=== PATIENT | female | born 2000 | race African-American/Black ===

== ENCOUNTER → 2024-06-28 | Outpatient (REF) | payer OTHER | LOC: M WUC 19:41 | PROVIDERS: ATTEND Registered Nurse | DX: N76.6 Ulceration of vulva (principal) ==

== ENCOUNTER 2024-09-07 19:16 | Emergency (ER) | payer OTHER ==
[~2024-09-07] VITALS: Ht 162.6 cm; Wt 82.5 kg
[2024-09-07 19:22] VITALS: BP 132/65; TEMP 97.6; O2SAT 100
[2024-09-07] MEDS ORDERED: MUCI120T PO (19:45)
== END 2024-09-07 21:01 | disposition left against medical advice (07) ==
LOC: M ED 19:16
DX: Z53.21 Procedure and treatment not carried out due to patient leaving prior to being seen by health care provider (principal)

== ENCOUNTER 2024-11-08 10:44 | Emergency (ER) | payer OTHER ==
[~2024-11-08] VITALS: Ht 162.6 cm; Wt 83.6 kg
[~2024-11-08 10:44] MED LIST: MUCI120T PO
[2024-11-08] MEDS: ACETAMINOPHEN 500 MG TAB PO ONE (12:04)
[2024-11-08 13:59] VITALS: O2SAT 81
[2024-11-08 14:00] VITALS: BP 94/54; TEMP 99.4
== END 2024-11-08 14:18 | disposition home or self-care (01) ==
LOC: M ED 10:44
DX: J09.X2 Influenza due to identified novel influenza A virus with other respiratory manifestations (principal)

== ENCOUNTER 2024-12-28 10:29 | Emergency (ER) | payer OTHER ==
[~2024-12-28] VITALS: Ht 162.6 cm; Wt 82.5 kg
[2024-12-28] MEDS ORDERED: AMOX875T PO (11:59)
[2024-12-28] MEDS ORDERED: ONDA-282 PO (12:00)
[2024-12-28] MEDS: ONDANSETRON 4MG ORAL DISINTEGRATING TAB PO ONE (12:00)
[2024-12-28 12:34] VITALS: BP 114/71; TEMP 97.9; O2SAT 98
== END 2024-12-28 13:10 | disposition home or self-care (01) ==
LOC: M ED 10:29
DX: J06.9 Acute upper respiratory infection, unspecified (principal); H66.92 Otitis media, unspecified, left ear

== ENCOUNTER 2025-02-15 12:48 | Emergency (ER) | payer OTHER ==
[~2025-02-15] VITALS: Ht 162.6 cm; Wt 82.9 kg
[~2025-02-15 12:48] MED LIST changes: +AMOX875T PO; +ONDA-282 PO
[2025-02-15 12:51] VITALS: TEMP 98.1
[2025-02-15 13:45] LABS: BASO % 0.4 % (0.0-1.0); HEMATOCRIT 37.5 % (36.0-47.0); HEMOGLOBIN 12.8 g/dl (12.0-15.5); KETONE, URINE AUTO RFX NEGATIVE (NEGATIVE); LEUKOCYTE ESTERASE UR AUTO RFX NEGATIVE (NEGATIVE); LYMPH # 1.7 10^3/uL (1.5-5.0); LYMPH % 20.5 % (24.0-44.0); MEAN CORPUSCULAR HEMOGLOBIN 30.8 pg (27.0-33.0); MEAN CORPUSCULAR HGB CONC 34.1 g/dl (32.0-36.5); MEAN CORPUSCULAR VOLUME 90.1 fl (80.0-96.0); MONO # 0.5 10^3/uL (0.0-0.8); MONO % 6.3 % (2.0-8.0); MUCUS, URINE RFX SMALL (NEGATIVE); NEUTROPHILS # 5.9 10^3/uL (1.5-8.5); NEUTROPHILS % 72.3 % (36.0-66.0); NITRITE, URINE AUTO RFX NEGATIVE (NEGATIVE); PLATELET COUNT, AUTOMATED 293 10^3/uL (150-450); RBC, URINE AUTO RFX 0 /HPF (0-3); RED BLOOD COUNT 4.16 10^6/uL (4.00-5.40); SQUAM EPITHELIAL CELL UR AURFX 4 /HPF (0-6); WBC, URINE AUTO RFX 1 /HPF (0-3); WHITE BLOOD COUNT 8.2 10^3/uL (4.0-10.0)
[2025-02-15 14:05] LABS: BLOOD UREA NITROGEN 12 MG/DL (9-23); CALCIUM LEVEL 9.3 MG/DL (8.5-10.1); CARBON DIOXIDE LEVEL 25 MMOL/L (20-31); CHLORIDE LEVEL 106 MMOL/L (98-107); CREATININE FOR GFR 0.75 MG/DL (0.55-1.30); GLOMERULAR FILTRATION RATE > 90.0 (>60); GLUCOSE, FASTING 82 MG/DL (60-100); POTASSIUM SERUM 4.1 MMOL/L (3.5-5.1); SODIUM LEVEL 137 MMOL/L (136-145)
[2025-02-15 14:09] LABS: HCG, SERUM QUALITATIVE POSITIVE (NEGATIVE)
[2025-02-15 14:54] VITALS: BP 112/83; O2SAT 100
== END 2025-02-15 16:38 | disposition left against medical advice (07) ==
LOC: M ED 12:48
DX: Z53.21 Procedure and treatment not carried out due to patient leaving prior to being seen by health care provider (principal)